=== PATIENT | female | born 1985 | race Hispanic/Latino ===

== ENCOUNTER 2017-02-19 06:09 | Inpatient (IN) | payer BC ==
[2017-02-14 11:05] VITALS: BMI 38.6
[2017-02-19] MEDS ORDERED: Bacitracin Ointment 30 GM TUBE ONE (06:53)
[2017-02-19] MEDS ORDERED: Absorbable Gelatin Sponge Size 12-7 ONE (06:53)
[2017-02-19] MEDS ORDERED: Thrombin Topical 5,000 IU Spray Kit ONE (06:54)
[2017-02-19] MEDS ORDERED: Lactated Ringer's 1,000 ML IV ONE ×2 (07:08→07:50)
[2017-02-19] MEDS ORDERED: Propofol 10 mg/ml Inj (20 ML) ONE (07:08)
[2017-02-19] MEDS ORDERED: ePHEDrine 50 mg/ml Inj ONE (07:08)
[2017-02-19] MEDS ORDERED: Midazolam 2 MG/2 ML VIAL ONE (07:08)
[2017-02-19] MEDS ORDERED: Succinylcholine 200 mg/10 ml Inj IV ONE (07:09)
[2017-02-19] MEDS ORDERED: Rocuronium 10 mg/ml (5 ml) ONE ×3 (07:09→08:40)
[2017-02-19] MEDS ORDERED: Phenylephrine 10 mg/ml Inj ONE (07:09)
--- NOTE | 2017-02-19 07:33 | CP.PCM.CON ---
History of Present Illness - History of Present Illness History of Present Illness: 32 yo right hand dominant legally blind female since seen by Dr. Paez in his office,c/o sudden onset of neckpain radiating to LUE and LLE x >6 mos and worsening with weakness and paresthesias,difficulty ambulating at times,uses no assistive devices,seen in ER several times for pain with neg XR's,CT head showing an incidental calcified meningioma (no surgical intervention needed currently),referred to neurologist,MRI completed showing multi level severe cervical spondylosis,no relief with conservative management,referred to neurosurgery for further eval,ambulates independently,denies trauma,fall,bowel or bladder incontinance. Review of Systems - Review of Systems Systems not reviewed;Unavailable: Acuity of Condition - Constitutional Additional comments: Denies RUST,n/v,TIA,CVA, facial paresthesias,change in speech or change in vision from baseline - EENT Additional comments: Legally blind - Musculoskeletal Musculoskeletal: Muscle Weakness, Neck Pain, Radiating Pain into Limb, Tingling - Neurological Neurological: As Per HPI, Radicular Pain - Psychiatric Additional comments: Hx anxiety and depression,no suicidal ideation - Hematologic/Lymphatic Additional comments: uses Naproxen,last used 1 week ago Past Patient History - Infectious Disease Hx of Infectious Diseases: None - Tetanus Immunizations Tetanus Immunization: Unknown - Past Medical History & Family History Past Medical History?: Yes - Past Social History Smoking Status: Never Smoked Chewing Tobacco Use: No Cigar Use: No Occupation: unemployed Alcohol: None Drugs: Denies Home Situation {Lives}: With Family Domestic Violence: Negative - CARDIAC Hx Cardiac Disorders: No - PULMONARY Hx Respiratory Disorders: No - NEUROLOGICAL Hx Neurological Disorder: No Other/Comment: DX OF BRAIN TUMOR AUG 2016 - HEENT Hx HEENT Problems: Yes Hx Blind: Yes (legally) - RENAL Hx Chronic Kidney Disease: No - ENDOCRINE/METABOLIC Hx Endocrine Disorders: No - HEMATOLOGICAL/ONCOLOGICAL Hx Blood Disorders: No - INTEGUMENTARY Hx Dermatological Problems: No - MUSCULOSKELETAL/RHEUMATOLOGICAL Hx Musculoskeletal Disorders: Yes Hx Back Pain: Yes (AND NECK PAIN) - GASTROINTESTINAL Hx Gastrointestinal Disorders: No - GENITOURINARY/GYNECOLOGICAL Hx Genitourinary Disorders: No Other/Comment: ovarian cyst - PSYCHIATRIC Hx Psychophysiologic Disorder: Yes Hx Anxiety: Yes Hx Depression: Yes Hx Substance Use: No - SURGICAL HISTORY Hx Surgeries: Yes Other/Comment: GASTRIC LAP BAND PLACEMENT AND REMOVAL 2014 .REMOVAL FIBROID AUG 2016 - ANESTHESIA Hx Anesthesia: Yes Hx Anesthesia Reactions: No Hx Malignant Hyperthermia: No Has any member of the family had a problem w/ anesthesia?: No Meds Allergies/Adverse Reactions: Allergies Allergy/AdvReac Type Severity Reaction Status Date / Time Penicillins Allergy ANAPHYLAXIS Verified 07/21/16 14:05 Physical Exam - Constitutional Appears: Well, Non-toxic, No Acute Distress - Head Exam Head Exam: ATRAUMATIC, NORMAL INSPECTION, NORMOCEPHALIC - Eye Exam Eye Exam: EOMI Pupil Exam: PERRL Additional comments: + horizontal nystagmus,able to see objects relatively clear 12 inches from face, decreased acuity and visual yo - ENT Exam ENT Exam: Mucous Membranes Moist - Neck Exam Neck exam: Positive for: Normal Inspection, Tenderness - Respiratory Exam Respiratory Exam: Clear to Auscultation Bilateral - Cardiovascular Exam Cardiovascular Exam: REGULAR RHYTHM, +S1, +S2 - GI/Abdominal Exam GI & Abdominal Exam: Normal Bowel Sounds, Soft Additional comments: obese,no pelvic paresthesias - Rectal Exam Rectal Exam: Deferred - Extremities Exam Extremities exam: Positive for: normal inspection, pedal pulses present - Back Exam Back exam: NORMAL INSPECTION, vertebral tenderness Additional comments: hx LBP with LLE radiculapathy - Neurological Exam Neurological exam: Alert, Oriented x3 Additional comments: gait steady,WATTERS x 4 antigravity with good strength except LUE weakness 4-4+/5, decreased sensation LUE,hyperreflexic in LUE and BLE - Psychiatric Exam Psychiatric exam: Normal Affect, Normal Mood - Skin Skin Exam: Dry, Intact, Pallor Additional comments: pt albino Results - Vital Signs Recent Vital Signs: Last Vital Signs Temp Pulse 120 H 02/19/17 06:41 Resp BP Pulse Ox - Labs Result Diagrams: 02/20/17 08:31 Labs: Laboratory Results - last 24 hr 02/19/17 06:30 BBK History Checked No verified bt Assessment & Plan - Assessment and Plan (Free Text) Assessment: 32 yo female with multi level cervical spondylosis C3-7 and myelopathy who has failed conservative management and symptoms worsening. Plan: Here today for proposed posterior cervical laminectomy C3-7 with lateral mass screw fixation of multiple levels with Dr. Paez,risks and benefits of surgery discussed with pt,expressed understanding and wishes to proceed.
[2017-02-19] MEDS ORDERED: Morphine 1 mg/ml preservative-free Inj(Duramorph) ONE (08:01)
[2017-02-19] MEDS ORDERED: Dexamethasone 4 mg/1 ml ONE (08:29)
[2017-02-19] MEDS ORDERED: HEMOSTATIC MATRIX 10 ML DIS.NEEDLE TOP ONE ×2 (08:31)
[2017-02-19] MEDS ORDERED: Thrombin Topical 5,000 IU Spray Kit TOP ONE (08:34)
[2017-02-19] MEDS ORDERED: Absorbable Gelatin Sponge Size 12-7 TP ONE (08:35)
[2017-02-19] MEDS ORDERED: Neostigmine Methylsulfate 3mg/3ml Syringe IV ONE (08:58)
[2017-02-19] MEDS ORDERED: Neostigmine Methylsulfate 2 MG/2 ML ML IV ONE (08:58)
[2017-02-19] MEDS ORDERED: Bupivacaine HCl 0.25% PF (30 ml) Inj ONE (09:19)
[2017-02-19] MEDS ORDERED: Bupivacaine HCl 0.25% PF (30 ml) Inj IJ ONE (09:45)
[2017-02-19] MEDS ORDERED: Naloxone 0.4 mg/ml Inj (Adult) IVP PRN (10:05)
[2017-02-19] MEDS: HYDROmorphone 0.5 mg/0.5 ml ISec IVP PRN ×4 (10:30→11:20)
--- NOTE | 2017-02-19 14:02 | RAD ---
PROCEDURE: Fluoroscopy up to 1 hr. HISTORY: PCDF COMPARISON: None TECHNIQUE: Standard FINDINGS: Submitted images from the current procedure: 1.0. Total fluoroscopic time (continuous mode) utilized during the procedure: 6.6 seconds. IMPRESSION: Less than 1 hr fluoroscopic time utilized during performance of the procedure.
[2017-02-19] MEDS: Sodium Chloride 0.9% 1,000 ML IV SCH ×2 (14:15→21:44)
--- NOTE | 2017-02-19 15:34 | CP.PCM.HP ---
History of Present Illness - History of Present Illness History of Present Illness: pt is a 32y/o right hand dominant legally blind female since seen by Dr. Paez in his office,c/o sudden onset of neck pain radiating to LUE and LLE x 6 mos and worsening with weakness and parethesis,seen in ER several times for pain with neg XR's,CT head showing an incidental calcified meningioma,referred to neurologist,MRI completed showing cervical spondylosis,no relief with conservative management,referred to neurosurgery for further eval,ambulates independently,denies trauma,fall,bowel or bladder incontinence. pt seen and examined s/p posterior cervical laminectomy with lateral mass screw fixation, reports pain at surgical area but another than that no dizziness, headaches or visual changes Present on Admission - Present on Admission Any Indicators Present on Admission: No Review of Systems - Review of Systems All systems: reviewed and no additional remarkable complaints except Review of Systems: per HPI Past Patient History - Past Medical History & Family History Past Medical History?: Yes - Past Social History Smoking Status: Never Smoked - CARDIAC Hx Cardiac Disorders: No - PULMONARY Hx Respiratory Disorders: No - NEUROLOGICAL Hx Neurological Disorder: No Other/Comment: DX OF BRAIN TUMOR AUG 2016 - HEENT Hx HEENT Problems: Yes Hx Blind: Yes (legally) - RENAL Hx Chronic Kidney Disease: No - ENDOCRINE/METABOLIC Hx Endocrine Disorders: No - HEMATOLOGICAL/ONCOLOGICAL Hx Blood Disorders: No - INTEGUMENTARY Hx Dermatological Problems: No - MUSCULOSKELETAL/RHEUMATOLOGICAL Hx Musculoskeletal Disorders: Yes Hx Back Pain: Yes (AND NECK PAIN) - GASTROINTESTINAL Hx Gastrointestinal Disorders: No - GENITOURINARY/GYNECOLOGICAL Hx Genitourinary Disorders: No Other/Comment: ovarian cyst - PSYCHIATRIC Hx Psychophysiologic Disorder: Yes Hx Anxiety: Yes Hx Depression: Yes Hx Substance Use: No - SURGICAL HISTORY Hx Surgeries: Yes Other/Comment: GASTRIC LAP BAND PLACEMENT AND REMOVAL 2014 .REMOVAL FIBROID AUG 2016 - ANESTHESIA Hx Anesthesia: Yes Hx Anesthesia Reactions: No Hx Malignant Hyperthermia: No Has any member of the family had a problem w/ anesthesia?: No Meds Allergies/Adverse Reactions: Allergies Allergy/AdvReac Type Severity Reaction Status Date / Time Penicillins Allergy ANAPHYLAXIS Verified 07/21/16 14:05 Physical Exam - Constitutional Appears: Non-toxic, No Acute Distress - Head Exam Head Exam: NORMOCEPHALIC - Eye Exam Eye Exam: Normal appearance, PERRL Pupil Exam: NORMAL ACCOMODATION - ENT Exam ENT Exam: Mucous Membranes Moist - Neck Exam Additional comments: surgical site neatly dressed, drain in place. no leakage noted - Respiratory Exam Respiratory Exam: Clear to Auscultation Bilateral, NORMAL BREATHING PATTERN. absent: Rhonchi, Wheezes - Cardiovascular Exam Cardiovascular Exam: REGULAR RHYTHM, +S1, +S2 - GI/Abdominal Exam GI & Abdominal Exam: Normal Bowel Sounds, Soft. absent: Tenderness - Extremities Exam Extremities exam: Negative for: calf tenderness, pedal edema - Neurological Exam Neurological exam: Alert, Oriented x3 Results - Vital Signs Recent Vital Signs: Last Vital Signs Temp 99.2 F 02/19/17 15:00 Pulse 106 H 02/19/17 15:00 Resp 20 02/19/17 15:00 BP 130/84 02/19/17 15:00 Pulse Ox 97 02/19/17 15:00 - Labs Labs: Laboratory Results - last 24 hr 02/19/17 02/19/17 06:30 07:21 Blood Type A POSITIVE Blood Type Confirm A POSITIVE Antibody Screen Negative BBK History Checked No verified bt Assessment & Plan - Assessment and Plan (Free Text) Assessment: 32 y/o female legally blind admitted s/o posterior cervical laminectomy with lateral mass screw fixation POD #0 Plan: posterior cervical laminectomy with lateral mass screw fixation on PINION AND WHEEL TRUER pump for pain management pain management consulted as pt was on multiple opiates at home clindamycin continued for infection prevention lovenox in the Am Pt eval treat diet- liquid diet , in the morning will access if to progress to regular diet
[2017-02-19] MEDS: Dexamethasone 6 MG in Sodium Chloride 0.9% 50 ML IVPB SCH ×2 (16:46→21:38)
[2017-02-19] MEDS ORDERED: ceFAZolin 1 GM in Sodium Chloride 0.9% 100 ML IVPB SCH (21:00)
--- NOTE | 2017-02-19 21:21 | OP ---
PROCEDURE DATE: 02/19/2017 PREOPERATIVE DIAGNOSES: Cervical spondylosis with myelopathy. POSTOPERATIVE DIAGNOSES: Cervical spondylosis with myelopathy. PROCEDURE: C3-4-5-6-7 laminectomy, C3-C7 lateral mass plating using a [place] system of K2, C3-C7 po sterolateral fusion. Fluoroscopy has been used. Microscope has been used. SURGEON: Dr. Paez. COMPOSITION WEATHERBOARD APPLIER: Gwendolyn Zuluaga. Gwendolyn Zuluaga is a physician assistant merchandise manager who stayed through out the case and helped me operate from the beginning to the end. The screwhead stoner and polisher has been used for the procedure. Fluoroscopy has been used for the procedure. DESCRIPTION OF PROCEDURE: The patient was brought to the operating room, administered general endotr acheal anesthesia. Head was placed in a 3-pin Ambriz screwhead stoner and polisher. The patient was placed in the p kaylen position on a Sukdhev frame. heating systems installer has been clamped to the bed. Care was taken to protect all the pressure points. Back of the cervical area thoroughly prepped and draped in standard steril e manner after marking for skin incision for cervical laminectomy. After prepping and draping the ar ea, skin has been incised. Bleeding skin have been controlled with bipolar community aide. After using a Bovie community aide, paraspinal muscles have been detached from attachment of spinous process and lami na of C3-C7. Deep retractors have been applied. Identification of levels has been done with help of fluoroscopy. At this point, by using traditional landmarks, point of entry noted for the lateral ma ss plates from C3-C7. Initially ____ has been used. Polyaxial titanium screws have been placed in t he lateral ____ under fluoroscopy guided control of the K2 system. Titanium rods have been placed. Cap nuts have been used in order to secure them. All this has been done with fluoroscopy. At this p oint, under microscope magnification and illumination, the spinous process of C3-C7 have been removed . By using a high speed drill, the lamina and medial part of the facets have been drilled to actual thickness. By using a fine Kerrison punch thinned out ____ lamina, medial part of the facets, ligam entum flavum has been removed decompressing this area. Lateral aspect of facet joints have been deco rticated, demineralized bone placed in the area achieving a posterolateral fusion. After that, the J kson drain placed in the wound ____ incision. Muscles and fascia closed with 1-0 Vicryl, subcutan eous with 3-0 Vicryl, skin has been closed with intradermal 3-0 Vicryl stitches. The patient tolerat ed the procedure. After procedure, mobilized to the recovery room in stable condition. Paulo Paez MD cc: 252 TT: 02/19/2017 21:20:54 rn
[2017-02-19] MEDS: oxyCODONE 40 mg ER Tab (oxyCONTIN) PO SCH (21:39)
[2017-02-19] MEDS: Clindamycin 600 MG in Sodium Chloride 0.9% 100 ML IVPB SCH (22:01)
[2017-02-20] MEDS: Dexamethasone 6 MG in Sodium Chloride 0.9% 50 ML IVPB SCH ×4 (04:30→21:20)
[2017-02-20] MEDS: Sodium Chloride 0.9% 1,000 ML IV SCH ×2 (05:55→17:20)
[2017-02-20 08:44] LABS: BASO % 0.2 % (0.0-2.0); HEMATOCRIT 28.2 % (34.0-47.0); LYMPH # 1.1 K/uL (1.0-4.3); LYMPH % 10.4 % (20.0-40.0); MEAN CELL VOLUME 69.2 fl (81.0-99.0); MEAN CORPUSCULAR HEMOGLOBIN 21.3 pg (27.0-31.0); MEAN CORPUSCULAR HGB CONC 30.8 g/dL (33.0-37.0); MEAN PLATELET VOLUME 8.1 fl (7.2-11.7); MONO # 1.1 K/uL (0.0-0.8); MONO % 9.9 % (0.0-10.0); NEUT # 8.6 K/uL (1.8-7.0); NEUT % 79.5 % (50.0-75.0); NRBC % 0.1 % (0.0-0.0); WHITE BLOOD COUNT 10.8 K/uL (4.8-10.8)
[2017-02-20] MEDS ORDERED: Enoxaparin 40 mg Syringe SC SCH (09:00)
[2017-02-20] MEDS: oxyCODONE 40 mg ER Tab (oxyCONTIN) PO SCH ×2 (09:38→21:17)
[2017-02-20] MEDS ORDERED: Lactulose 10 gm/15 ml Syrup PO PRN (10:41)
[2017-02-20 11:48] LABS: BLOOD UREA NITROGEN 12 mg/dl (7-17); CALCIUM 8.8 mg/dL (8.4-10.2); CARBON DIOXIDE 22 mmol/L (22-30); CHLORIDE 105 mmol/L (98-107); GFR AFRICAN-AMERICAN > 60; GLUCOSE,RANDOM 121 mg/dL (65-105); POTASSIUM 3.9 MMOL/L (3.6-5.0); SODIUM 134 mmol/l (132-148)
[2017-02-20] MEDS: Clindamycin 600 MG in Sodium Chloride 0.9% 100 ML IVPB SCH ×2 (12:09→21:18)
[2017-02-20] MEDS: Oxycodone/Acetaminophen 5/325 mg Tab PO PRN (17:18)
[2017-02-21 07:29] LABS: HEMATOCRIT 29.8 % (34.0-47.0); MEAN CELL VOLUME 70.1 fl (81.0-99.0); MEAN CORPUSCULAR HEMOGLOBIN 21.2 pg (27.0-31.0); MEAN CORPUSCULAR HGB CONC 30.3 g/dL (33.0-37.0); RED CELL DISTRIBUTION WIDTH 19.3 % (11.5-14.5); WHITE BLOOD COUNT 10.9 K/uL (4.8-10.8)
[2017-02-21 07:30] LABS: BLOOD UREA NITROGEN 11 mg/dl (7-17); CALCIUM 8.7 mg/dL (8.4-10.2); CARBON DIOXIDE 24 mmol/L (22-30); CHLORIDE 106 mmol/L (98-107); GFR AFRICAN-AMERICAN > 60; GLUCOSE,RANDOM 127 mg/dL (65-105); POTASSIUM 4.3 MMOL/L (3.6-5.0); SODIUM 142 mmol/l (132-148)
[2017-02-21 08:13] VITALS: BP 113/78; RESP 18; TEMP 97.8
[2017-02-21] MEDS ORDERED: Dexamethasone 4 MG in Sodium Chloride 0.9% 50 ML IVPB SCH (09:00)
[2017-02-21] MEDS: Oxycodone/Acetaminophen 5/325 mg Tab PO PRN (09:23)
[2017-02-21] MEDS: oxyCODONE 40 mg ER Tab (oxyCONTIN) PO SCH (09:24)
[2017-02-21] MEDS: Clindamycin 600 MG in Sodium Chloride 0.9% 100 ML IVPB SCH (09:25)
--- NOTE | 2017-02-21 11:43 | CP.PCM.DIS ---
Provider - Provider Date of Admission: 02/19/17 10:35 Attending physician: Jack Bynum MD Primary care physician: César Mahoney MD Time Spent in preparation of Discharge (in minutes): 30 Diagnosis - Discharge Diagnosis (1) Cervical spondylolysis Status: Acute Hospital Course - Lab Results Lab Results: Most Recent Lab Values WBC 10.9 K/uL (4.8-10.8) H 02/21/17 05:50 RBC 4.26 Mil/uL (3.80-5.20) 02/21/17 05:50 Hgb 9.0 g/dL (12.0-16.0) L 02/21/17 05:50 Hct 29.8 % (34.0-47.0) L 02/21/17 05:50 MCV 70.1 fl (81.0-99.0) L 02/21/17 05:50 MCH 21.2 pg (27.0-31.0) L 02/21/17 05:50 MCHC 30.3 g/dL (33.0-37.0) L 02/21/17 05:50 RDW 19.3 % (11.5-14.5) H 02/21/17 05:50 Plt Count 245 K/uL (130-400) 02/21/17 05:50 MPV 8.1 fl (7.2-11.7) 02/20/17 08:31 Neut % (Auto) 79.5 % (50.0-75.0) H 02/20/17 08:31 Lymph % (Auto) 10.4 % (20.0-40.0) L 02/20/17 08:31 [place] % (Auto) 9.9 % (0.0-10.0) 02/20/17 08:31 Eos % (Auto) 0.0 % (0.0-4.0) 02/20/17 08:31 Baso % (Auto) 0.2 % (0.0-2.0) 02/20/17 08:31 Neut # 8.6 K/uL (1.8-7.0) H 02/20/17 08:31 Lymph # 1.1 K/uL (1.0-4.3) 02/20/17 08:31 [place] # 1.1 K/uL (0.0-0.8) H 02/20/17 08:31 Eos # 0.0 K/uL (0.0-0.7) 02/20/17 08:31 Baso # 0.0 K/uL (0.0-0.2) 02/20/17 08:31 Sodium 142 mmol/l (132-148) 02/21/17 05:50 Potassium 4.3 MMOL/L (3.6-5.0) 02/21/17 05:50 Chloride 106 mmol/L (98-107) 02/21/17 05:50 Carbon Dioxide 24 mmol/L (22-30) 02/21/17 05:50 Anion Gap 16 (10-20) 02/21/17 05:50 BUN 11 mg/dl (7-17) 02/21/17 05:50 Creatinine 0.7 mg/dL (0.7-1.2) 02/21/17 05:50 Est GFR ( Amer) > 60 02/21/17 05:50 Est GFR (Non-Af Amer) > 60 02/21/17 05:50 POC Glucose (mg/dL) 134 mg/dL (65-110) H 02/20/17 05:23 Random Glucose 127 mg/dL (65-105) H 02/21/17 05:50 Calcium 8.7 mg/dL (8.4-10.2) 02/21/17 05:50 Iron 13 ug/dL (37-170) L 02/21/17 09:25 Ferritin 5.7 ng/mL 02/21/17 09:25 Vitamin B12 349 pg/mL (239-931) 02/21/17 09:25 Blood Type A POSITIVE 02/19/17 06:30 Blood Type Confirm A POSITIVE 02/19/17 07:21 Antibody Screen Negative 02/19/17 06:30 BBK History Checked No verified bt 02/19/17 06:30 - Hospital Course Hospital Course: pt was admitted s/p cervical laminectomy with fusion, pain managed appropriately had physical therapy and pt feels ready to go home. being discharge to follow up with surgeon in 2weeks. Pt remained medically stable through out stay Discharge Exam - Head Exam Head Exam: ATRAUMATIC, NORMAL INSPECTION, NORMOCEPHALIC - Eye Exam Eye Exam: Normal appearance Pupil Exam: NORMAL ACCOMODATION - ENT Exam ENT Exam: Mucous Membranes Moist - Neck Exam Additional comments: cervical collar around neck, drain removed, no signs of infection, dale still in place - Respiratory Exam Respiratory Exam: NORMAL BREATHING PATTERN - Cardiovascular Exam Cardiovascular Exam: REGULAR RHYTHM, +S1, +S2 - GI/Abdominal Exam GI & Abdominal Exam: Normal Bowel Sounds, Soft - Extremities Exam Extremities exam: normal inspection - Neurological Exam Neurological exam: Alert, CN II-XII Intact, Oriented x3 Discharge Plan - Discharge Medications Prescriptions: oxyCODONE/Acetaminophen [Percocet 5/325 mg Tab] 1 tab PO Q4 PRN #30 tab PRN Reason: Pain, Moderate (4-7) - Follow Up Plan Condition: GOOD Disposition: HOME/ ROUTINE Instructions: Laminectomy (GEN) Additional Instructions: Please follow up with Dr. arias at the specialty clinic in 2 weeks to have dale removed call this number [phone]/ [phone] to make the appointment Referrals: César Mahoney MD [Primary Care Provider] -
[2017-02-21 11:56] VITALS: PULSE 87; O2SAT 99
[2017-02-22 22:49] LABS: FOLATE 11.4 ng/mL
== END 2017-02-21 14:00 | disposition home or self-care (01) | DRG 473 ==
LOC: H.OPSURG 06:09 → H.TEL 10:35
PROVIDERS: ADMIT Family Medicine; ATTEND Family Medicine
PROC: 0RG20Z1 (ICD-10-PCS; principal; 2017-02-19 07:45)
DX: M47.12 Other spondylosis with myelopathy, cervical region (principal); H54.8 Legal blindness, as defined in USA; R20.9 Unspecified disturbances of skin sensation; Z88.0 Allergy status to penicillin

== ENCOUNTER 2018-06-14 07:03 | Inpatient (IN) | payer BC ==
[2018-06-14 07:03] VITALS: BMI 44.2
[2018-06-14] MEDS ORDERED: Sodium Chloride 0.9% 1,000 ML IV STA ×2 (07:22→09:40)
[2018-06-14 08:30] LABS: SQUAMOUS EPITHIAL 2 /hpf (0-5); URINE AMORPHOUS SEDIMENT OCC /ul (<OCC); URINE BACTERIA OCC (<OCC); URINE BILIRUBIN NEGATIVE (NEGATIVE); URINE BLOOD SMALL (NEGATIVE); URINE CLARITY TURBID (Clear); URINE COLOR AMBER (YELLOW); URINE GLUCOSE (UA) NEG (Normal); URINE LEUKOCYTE ESTERASE SMALL Leu/uL (Negative); URINE PROTEIN 100 mg/dL (NEGATIVE); URINE UROBILINOGEN 0.2-1.0 mg/dL (0.2-1.0)
--- NOTE | 2018-06-14 08:47 | CT ---
Date of service: 06/14/2018 PROCEDURE: CT Cervical Spine without contrast HISTORY: headache COMPARISON: None available. TECHNIQUE: Axial computed tomography images were obtained of the cervical spine without the use of intravenous contrast. Coronal and sagittal reformatted images were created and reviewed. Radiation dose: Total exam DLP = 652.92 mGy-cm. This CT exam was performed using one or more of the following dose reduction techniques: Automated exposure control, adjustment of the mA and/or kV according to patient size, and/or use of iterative reconstruction technique. . FINDINGS: VERTEBRAE: Multilevel bilateral laminectomy defect seen extending from the C3 through the C7 segments. . Multilevel posterior fixation accomplished by placement of long segment bilateral Ibarra rods which are attached to the posterior elements of C3 through the C7 segments. Hardware appears intact. No evidence of loosening or infection. . There is slight reversal of the normal cervical lordosis possibly due to patient positioning in the gantry however a posterior fixation hardware may contribute DISCS/SPINAL CANAL/NEURAL FORAMINA: The canal over operative levels appears widely patent the difficult to assess due to significant crossing streak and beam hardening artifact arising from the posterior fixation wire. Slight right-sided foraminal narrowing at the C4-C5 level and on the left at the C5-C6 level however the remaining exit foramina appear adequate so far as can be seen despite overgrowth of the facet joints at several levels. PARASPINAL SOFT TISSUES: Unremarkable. OTHER FINDINGS: None. IMPRESSION: Multilevel bilateral laminectomy and posterior fixation as described. Hardware is intact without evidence of failure. Overall central canal appears adequate though difficult to assess due to significant streak and beam hardening artifact. Exit foramina appear slightly narrowed at several levels as detailed above.
--- NOTE | 2018-06-14 08:59 | CT ---
Date of service: 06/14/2018 PROCEDURE: CT HEAD WITHOUT CONTRAST. HISTORY: L weakness hx cerv laminectomy COMPARISON: None available. TECHNIQUE: Axial computed tomography images were obtained through the head/brain without intravenous contrast. Radiation dose: Total exam DLP = 761.62 CT move mGy-cm. This CT exam was performed using one or more of the following dose reduction techniques: Automated exposure control, adjustment of the mA and/or kV according to patient size, and/or use of iterative reconstruction technique. FINDINGS: HEMORRHAGE: No intracranial hemorrhage. BRAIN: Note is made of a small approximately 6.5 x 5.9 mm rounded soft tissue density with speckled internal calcifications in the right aspect of the posterior fossa abutting the right lateral margin of the patella and inferomedial aspect of the cerebellum of uncertain etiology. Follow-up pre and post-contrast MRI of the brain is recommended to exclude the possibility of an extra-axial mass such is a small meningioma. Possibility of a posterior inferior cerebellar aneurysm not excluded. . VENTRICLES: Unremarkable. No hydrocephalus. CALVARIUM: Unremarkable. PARANASAL SINUSES: Unremarkable as visualized. No significant inflammatory changes. MASTOID AIR CELLS: Unremarkable as visualized. No inflammatory changes. OTHER FINDINGS: Small elliptical shaped nodular densities seen in the right posterior superior parietal scalp and another in the left frontal scalp IMPRESSION: No acute intracranial hemorrhage. No evidence of large acute infarct. . Posterior inferior cerebellar artery aneurysm Note is made of a small approximately 6.5 x 5.9 mm rounded soft tissue density with speckled internal calcifications in the right aspect of the posterior fossa abutting the right lateral margin of the patella and inferomedial aspect of the cerebellum of uncertain etiology. Follow-up pre and post-contrast MRI of the brain is recommended to exclude the possibility of an extra-axial mass such is a small meningioma. Possibility of a posterior inferior cerebellar aneurysm not excluded. .
[2018-06-14 09:02] LABS: BASO % 0.3 % (0.0-2.0); LYMPH # 1.6 K/uL (1.0-4.3); LYMPH % 11.5 % (20.0-40.0); MEAN CELL VOLUME 74.1 fl (81.0-99.0); MEAN CORPUSCULAR HEMOGLOBIN 24.5 pg (27.0-31.0); MEAN PLATELET VOLUME 7.6 fl (7.2-11.7); MONO # 0.4 K/uL (0.0-0.8); MONO % 2.7 % (0.0-10.0); NEUT # 11.6 K/uL (1.8-7.0); NEUT % 85.5 % (50.0-75.0); NRBC % 0.2 % (0.0-0.0); RBC 5.73 Mil/uL (3.80-5.20); WHITE BLOOD COUNT 13.5 K/uL (4.8-10.8)
[2018-06-14 09:10] LABS: ALB/GLOB RATIO 1.2 (1.0-2.1); ALT/SGPT 34 U/L (9-52); AST/SGOT 26 U/L (14-36); BLOOD UREA NITROGEN 13 mg/dl (7-17); CALCIUM 10.5 mg/dL (8.4-10.2); GFR AFRICAN-AMERICAN > 60; GFR NON-AFRICAN AMERICAN > 60
[2018-06-14] MEDS ORDERED: Ciprofloxacin 400mg/200ml D5W 400 MG/200 ML BAG IVPB STA (10:06)
--- NOTE | 2018-06-14 10:36 | ED PDOC ---
HPI:STROKE - Time Time: 07:30 - Historian Historian: Patient - Chief Complaint Chief Complaint: Weakness - Onset Date: 06/11/18 Onset: Days (3 days ago, approximate) - Timing Timing: Currently Symptomatic - Location Locate left: Lower extremity - Severity of pain Maximum severity:: Severe Severity Current: Severe - Quality of Pain Quality of Pain:: Sharp - Exacerbated by Exacerbated by:: Postition Change - Relieved by Relieved by:: Position Change - TPA Positive for Contraindication: Yes Reason tPA is not being Administered: ongoing 3 days - Notes: Notes:: 33yo female c/o left sided weakness associated with neck pain, persistent nausea vomiting and chills now for 3 days. Also states ran out of opioid pain meds early this month because of worsening neck pain. Saw Dr Paez her spine surgeon in late may told all was ok, had cervical laminectomy spring 2016. Denies change in vision or speech, does feel L facial tingling but denies facial droop. Does admit to some difficulty swallowing. Past Medical History Vital Signs: Last Vital Signs Temp 100 F H 06/14/18 07:11 Pulse 98 H 06/14/18 07:11 Resp 20 06/14/18 07:24 BP 144/87 06/14/18 07:11 Pulse Ox 99 06/14/18 07:11 - Medical History PMH: Anxiety, Depression Denies: Chronic Kidney Disease - Surgical History Surgical History: Back Surgery (vertebre) - Home Medications Home Medications: Ambulatory Orders Medication Instructions Recorded Fluoxetine HCl [Prozac] 40 mg PO DAILY 06/14/18 Metoclopramide [Reglan] 10 mg PO QID PRN 06/14/18 Oxycodone HCl [Oxycontin] 60 mg PO TID 06/14/18 Oxycodone HCl/Acetaminophen 1 tab PO BID 06/14/18 [Percocet 7.5-325 mg Tablet] Tolterodine [Detrol LA] 4 mg PO DAILY PRN 06/14/18 Zolpidem [Ambien] 10 mg PO HS 06/14/18 buPROPion XL [Wellbutrin] 150 mg PO DAILY 06/14/18 oxyCODONE [oxycodone Hydrochloride] 20 mg PO TID 06/14/18 - Allergies Allergies/Adverse Reactions: Allergies Allergy/AdvReac Type Severity Reaction Status Date / Time Penicillins Allergy ANAPHYLAXIS Verified 06/14/18 07:23 - Laboratory Results Result Diagrams: 06/14/18 08:50 06/14/18 08:50 - ECG O2 Sat by Pulse Oximetry: 99 Medical Decision Making Medical Decision Making: not code stroke candidate given symptoms ongoing >[address] brain, CSpine ordered Low grade temp, cultures ordered, labs. UA reveals small evidence UTI D/w Dr Paez neurosurg requests CRP/ESR and admit to Dr Bynum d/w Dr Bynum, neuro she sees Dr Fuller but case d/w him and he's on vacation this week, environmental health technologist neuro to see ASA 81mg ordered given c/o subjective L sided weakness Disposition - Disposition Forms: [employer] ([place])
[2018-06-14] MEDS ORDERED: Ciprofloxacin 400mg/200ml D5W 400 MG/200 ML BAG IVPB ONE (10:43)
[2018-06-14 10:46] LABS: HDL CHOLESTEROL 79 MG/DL (30-70)
[2018-06-14 10:56] LABS: LDL CHOLESTEROL 146 mg/dL (0-129)
[2018-06-14] MEDS ORDERED: Oxycodone/Acetaminophen 5/325 mg Tab PO PRN (12:09)
[2018-06-14] MEDS: Oxycodone/Acetaminophen 5/325 mg Tab PO PRN ×3 (12:47→21:11)
[2018-06-14] MEDS: Lidocaine 5% Patch TD SCH (12:48)
--- NOTE | 2018-06-14 17:51 | CP.PCM.HP ---
History of Present Illness - History of Present Illness History of Present Illness: this is a 33 y/o female admnitted for worsening of posterior( cervical) neck pain and left trapezius pain for 3 days associated with fever and chills and at times episodes of vomiting. 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 She had the same episode a month ago and had consulted Dr Arias who performed the cervical laminectomy last year. her symptoms resolved spontaneously. She was able to regain strength of left upper extremity but persisted to have pain. She is currently on high doses of pain medications and Psychotropic medications. Present on Admission - Present on Admission Any Indicators Present on Admission: No History of DVT/PE: No History of Uncontrolled Diabetes: No Urinary Catheter: No Decubitus Ulcer Present: No Review of Systems - Musculoskeletal Musculoskeletal: Back Pain, Limited Range of Motion, Muscle Weakness, Neck Pain - Psychiatric Psychiatric: Abnormal Sleep Pattern, Depression Past Patient History - Infectious Disease Hx of Infectious Diseases: None - Tetanus Immunizations Tetanus Immunization: Unknown - Past Medical History & Family History Past Medical History?: Yes - Past Social History Smoking Status: Never Smoked - CARDIAC Hx Cardiac Disorders: No - PULMONARY Hx Respiratory Disorders: No - NEUROLOGICAL Hx Neurological Disorder: No Other/Comment: DX OF BRAIN TUMOR AUG 2016 - HEENT Hx HEENT Problems: Yes Hx Blind: Yes (legally) - RENAL Hx Chronic Kidney Disease: No - ENDOCRINE/METABOLIC Hx Endocrine Disorders: No - HEMATOLOGICAL/ONCOLOGICAL Hx Blood Disorders: No - INTEGUMENTARY Hx Dermatological Problems: No - MUSCULOSKELETAL/RHEUMATOLOGICAL Hx Falls: No - GASTROINTESTINAL Hx Gastrointestinal Disorders: No - GENITOURINARY/GYNECOLOGICAL Hx Genitourinary Disorders: No Other/Comment: ovarian cyst - PSYCHIATRIC Hx Anxiety: Yes Hx Depression: Yes Hx Substance Use: No - SURGICAL HISTORY Other/Comment: GASTRIC LAP BAND PLACEMENT AND REMOVAL 2014 .REMOVAL FIBROID AUG 2016 - ANESTHESIA Hx Anesthesia: Yes Hx Anesthesia Reactions: No Hx Malignant Hyperthermia: No Meds Allergies/Adverse Reactions: Allergies Allergy/AdvReac Type Severity Reaction Status Date / Time Penicillins Allergy ANAPHYLAXIS Verified 06/14/18 07:23 Physical Exam - Eye Exam Eye Exam: Normal appearance - ENT Exam ENT Exam: Mucous Membranes Moist - Neck Exam Neck exam: Positive for: Tenderness Additional comments: tenderness on the left trapezius area - Respiratory Exam Respiratory Exam: Rhonchi - Cardiovascular Exam Cardiovascular Exam: REGULAR RHYTHM - GI/Abdominal Exam GI & Abdominal Exam: Normal Bowel Sounds - Extremities Exam Additional comments: 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 and decreased motor strength left hand/ upper ext - Neurological Exam Neurological exam: CN II-XII Intact, Oriented x3 Additional comments: decreased motor strength left upper ext to 4/5 the rest of other ext are all 5/5 - Psychiatric Exam Psychiatric exam: Depressed - Skin Skin Exam: Normal Color Results - Vital Signs Recent Vital Signs: Last Vital Signs Temp 98.1 F 06/14/18 16:09 Pulse 82 06/14/18 16:09 Resp 16 06/14/18 16:09 BP 120/80 06/14/18 16:09 Pulse Ox 98 06/14/18 16:09 - Labs Result Diagrams: 06/14/18 08:50 06/14/18 08:50 Labs: Laboratory Results - last 24 hr 06/14/18 06/14/18 06/14/18 07:39 08:50 08:50 WBC 13.5 H RBC 5.73 H Hgb 14.0 D Hct 42.5 MCV 74.1 L D MCH 24.5 L MCHC 33.0 RDW 18.0 H Plt Count 408 H D MPV 7.6 Neut % (Auto) 85.5 H Lymph % (Auto) 11.5 L [place] % (Auto) 2.7 Eos % (Auto) 0.0 Baso % (Auto) 0.3 Neut # (Auto) 11.6 H Lymph # (Auto) 1.6 [place] # (Auto) 0.4 Eos # (Auto) 0.0 Baso # (Auto) 0.0 ESR Sodium 143 Potassium 4.0 Chloride 102 Carbon Dioxide 23 Anion Gap 22 H BUN 13 Creatinine 0.8 Est GFR ( Amer) > 60 Est GFR (Non-Af Amer) > 60 Random Glucose 165 H Calcium 10.5 H Total Bilirubin 0.7 AST 26 ALT 34 Alkaline Phosphatase 120 C-Reactive Protein C-React Prot High Sens Total Protein 9.1 H Albumin 5.0 Globulin 4.1 H Albumin/Globulin Ratio 1.2 Triglycerides Cholesterol LDL Cholesterol Direct HDL Cholesterol Urine Color Cece Urine Clarity Turbid Urine pH 6.0 Ur Specific [place] 1.033 H Urine Protein 100 Urine Glucose (UA) Neg Urine Ketones 20 Urine Blood Small Urine Nitrate Negative Urine Bilirubin Negative Urine Urobilinogen 0.2-1.0 Ur Leukocyte Esterase Small Urine RBC (Auto) 6 H Urine Microscopic WBC 9 H Ur Squamous Epith Cells 2 Amorphous Sediment Occ H Urine Bacteria Occ H 06/14/18 06/14/18 06/14/18 10:00 10:00 11:49 WBC RBC Hgb Hct MCV MCH MCHC RDW Plt Count MPV Neut % (Auto) Lymph % (Auto) [place] % (Auto) Eos % (Auto) Baso % (Auto) Neut # (Auto) Lymph # (Auto) [place] # (Auto) Eos # (Auto) Baso # (Auto) ESR 32 H Sodium Potassium Chloride Carbon Dioxide Anion Gap BUN Creatinine Est GFR ( Amer) Est GFR (Non-Af Amer) Random Glucose Calcium Total Bilirubin AST ALT Alkaline Phosphatase C-Reactive Protein Cancelled C-React Prot High Sens 2.53 Total Protein Albumin Globulin Albumin/Globulin Ratio Triglycerides 168 H Cholesterol 295 H LDL Cholesterol Direct 146 H HDL Cholesterol 79 H Urine Color Urine Clarity Urine pH Ur Specific [place] Urine Protein Urine Glucose (UA) Urine Ketones Urine Blood Urine Nitrate Urine Bilirubin Urine Urobilinogen Ur Leukocyte Esterase Urine RBC (Auto) Urine Microscopic WBC Ur Squamous Epith Cells Amorphous Sediment Urine Bacteria Assessment & Plan (1) Cervical radiculopathy at C5 Status: Acute (2) Neck pain Status: Acute (3) Strain of cervical portion of trapezius muscle Status: Acute (4) Chronic pain Status: Acute (5) Depression Status: Acute (6) Left arm weakness Status: Acute Comment: doubt stroke, probably from cervical myelpathy - Assessment and Plan (Free Text) Plan: start pain meds Ibuprofen cont all other pain meds Consult with Dr ansari Consult with Dr arias Psych eval Phys therapy Neuro eval re left upper arm weakness.
--- NOTE | 2018-06-14 18:18 | CP.PCM.CON ---
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 and pt is admitted for severe pain in left side of posterior neck and left shoulder and psych consult called for eval of depression.Pt reports h/o depression before her problems of pain issues .pt has been seeing a psychiatrist and prescribed prozac 40 mg daily and wellbutrin SR 150 mg daily and doing well Past Patient History - Infectious Disease Hx of Infectious Diseases: None - Tetanus Immunizations Tetanus Immunization: Unknown - Past Medical History & Family History Past Medical History?: Yes - Past Social History Smoking Status: Never Smoked - CARDIAC Hx Cardiac Disorders: No - PULMONARY Hx Respiratory Disorders: No - NEUROLOGICAL Hx Neurological Disorder: No Other/Comment: DX OF BRAIN TUMOR AUG 2016 - HEENT Hx HEENT Problems: Yes Hx Blind: Yes (legally) - RENAL Hx Chronic Kidney Disease: No - ENDOCRINE/METABOLIC Hx Endocrine Disorders: No - HEMATOLOGICAL/ONCOLOGICAL Hx Blood Disorders: No - INTEGUMENTARY Hx Dermatological Problems: No - MUSCULOSKELETAL/RHEUMATOLOGICAL Hx Falls: No - GASTROINTESTINAL Hx Gastrointestinal Disorders: No - GENITOURINARY/GYNECOLOGICAL Hx Genitourinary Disorders: No Other/Comment: ovarian cyst - PSYCHIATRIC Hx Anxiety: Yes Hx Depression: Yes Hx Substance Use: No - SURGICAL HISTORY Other/Comment: GASTRIC LAP BAND PLACEMENT AND REMOVAL 2014 .REMOVAL FIBROID AUG 2016 - ANESTHESIA Hx Anesthesia: Yes Hx Anesthesia Reactions: No Hx Malignant Hyperthermia: No Meds Allergies/Adverse Reactions: Allergies Allergy/AdvReac Type Severity Reaction Status Date / Time Penicillins Allergy ANAPHYLAXIS Verified 06/14/18 07:23 - Medications Medications: Current Medications Acetaminophen (Tylenol 325mg Tab) 650 mg PO Q4 PRN PRN Reason: Pain, Mild (1-3) Cyclobenzaprine HCl (Flexeril) 5 mg PO BID [facility] Last Admin: 06/14/18 16:42 Dose: 5 mg Enoxaparin Sodium (Lovenox) 40 mg SC DAILY [facility] PRN Reason: Protocol Fluoxetine HCl (Prozac) 40 mg PO DAILY [facility] Home Med (Bupropion Xl [Wellbutrin Xl]) 150 mg PO DAILY [facility] Lidocaine (Lidoderm) 1 ea TD DAILY [facility] Last Admin: 06/14/18 12:48 Dose: 1 ea Oxycodone/Acetaminophen (Percocet 5/325 Mg Tab) 2 tab PO Q4 PRN PRN Reason: Pain, severe (8-10) Stop: 06/17/18 12:07 Last Admin: 06/14/18 16:41 Dose: 2 tab Oxycodone/Acetaminophen (Percocet 5/325 Mg Tab) 1 tab PO Q4 PRN PRN Reason: Pain, moderate (4-7) Stop: 06/17/18 12:10 Zolpidem Tartrate (Ambien) 5 mg PO HS MAX Physical Exam - Psychiatric Exam Psychiatric exam: Anxious, Depressed Additional comments: pt is alert ,oriented x3 with intact cognition.pt denies suicidal ideation plan and intent.pt has fair insight.no psychosis. Results - Vital Signs Recent Vital Signs: Last Vital Signs Temp 98.1 F 06/14/18 16:09 Pulse 82 06/14/18 16:09 Resp 16 06/14/18 16:09 BP 120/80 06/14/18 16:09 Pulse Ox 98 06/14/18 16:09 - Labs Result Diagrams: 06/14/18 08:50 06/14/18 08:50 Labs: Laboratory Results - last 24 hr 06/14/18 06/14/18 06/14/18 07:39 08:50 08:50 WBC 13.5 H RBC 5.73 H Hgb 14.0 D Hct 42.5 MCV 74.1 L D MCH 24.5 L MCHC 33.0 RDW 18.0 H Plt Count 408 H D MPV 7.6 Neut % (Auto) 85.5 H Lymph % (Auto) 11.5 L [place] % (Auto) 2.7 Eos % (Auto) 0.0 Baso % (Auto) 0.3 Neut # (Auto) 11.6 H Lymph # (Auto) 1.6 [place] # (Auto) 0.4 Eos # (Auto) 0.0 Baso # (Auto) 0.0 ESR Sodium 143 Potassium 4.0 Chloride 102 Carbon Dioxide 23 Anion Gap 22 H BUN 13 Creatinine 0.8 Est GFR ( Amer) > 60 Est GFR (Non-Af Amer) > 60 Random Glucose 165 H Calcium 10.5 H Total Bilirubin 0.7 AST 26 ALT 34 Alkaline Phosphatase 120 C-Reactive Protein C-React Prot High Sens Total Protein 9.1 H Albumin 5.0 Globulin 4.1 H Albumin/Globulin Ratio 1.2 Triglycerides Cholesterol LDL Cholesterol Direct HDL Cholesterol Urine Color Cece Urine Clarity Turbid Urine pH 6.0 Ur Specific [place] 1.033 H Urine Protein 100 Urine Glucose (UA) Neg Urine Ketones 20 Urine Blood Small Urine Nitrate Negative Urine Bilirubin Negative Urine Urobilinogen 0.2-1.0 Ur Leukocyte Esterase Small Urine RBC (Auto) 6 H Urine Microscopic WBC 9 H Ur Squamous Epith Cells 2 Amorphous Sediment Occ H Urine Bacteria Occ H 06/14/18 06/14/18 06/14/18 10:00 10:00 11:49 WBC RBC Hgb Hct MCV MCH MCHC RDW Plt Count MPV Neut % (Auto) Lymph % (Auto) [place] % (Auto) Eos % (Auto) Baso % (Auto) Neut # (Auto) Lymph # (Auto) [place] # (Auto) Eos # (Auto) Baso # (Auto) ESR 32 H Sodium Potassium Chloride Carbon Dioxide Anion Gap BUN Creatinine Est GFR ( Amer) Est GFR (Non-Af Amer) Random Glucose Calcium Total Bilirubin AST ALT Alkaline Phosphatase C-Reactive Protein Cancelled C-React Prot High Sens 2.53 Total Protein Albumin Globulin Albumin/Globulin Ratio Triglycerides 168 H Cholesterol 295 H LDL Cholesterol Direct 146 H HDL Cholesterol 79 H Urine Color Urine Clarity Urine pH Ur Specific [place] Urine Protein Urine Glucose (UA) Urine Ketones Urine Blood Urine Nitrate Urine Bilirubin Urine Urobilinogen Ur Leukocyte Esterase Urine RBC (Auto) Urine Microscopic WBC Ur Squamous Epith Cells Amorphous Sediment Urine Bacteria Assessment & Plan - Assessment and Plan (Free Text) Assessment: major depression chronic pain Plan: Pt has agreed to continue prozac and wellbutrin SR and currently stable on the meds and can be d/c home when medically stable and will follow up with dr rico ,her private psychiatrist.
[2018-06-15] MEDS: Oxycodone/Acetaminophen 5/325 mg Tab PO PRN ×4 (00:57→13:21)
[2018-06-15] MEDS: Lidocaine 5% Patch TD SCH (08:56)
[2018-06-15] MEDS: Enoxaparin 40 mg Syringe SC SCH (08:58)
[2018-06-15] MEDS ORDERED: Patient's Own Med (Bupropion Xl [Wellbutrin Xl] 150 MG) PO SCH (09:00)
--- NOTE | 2018-06-15 10:08 | CARD ---
APPROVED REPORT Date of service: 06/14/2018 EKG Measurement Heart [id number] <Conclusion> Normal sinus rhythm Prolonged QT Abnormal ECG
[2018-06-15] MEDS ORDERED: Ciprofloxacin 400mg/200ml D5W 400 MG/200 ML BAG IVPB SCH (10:45)
--- NOTE | 2018-06-15 11:14 | CP.PCM.PN ---
Subjective - Date & Time of Evaluation Date of Evaluation: 06/15/18 Time of Evaluation: 11:13 - Subjective Subjective: patient still with weakness of the left upper arm Objective - Vital Signs/Intake and Output Vital Signs (last 24 hours): Temp Pulse Resp BP Pulse Ox 98.1 F 90 20 128/91 H 99 06/15/18 09:00 06/15/18 09:00 06/15/18 09:00 06/15/18 09:00 06/15/18 09:00 - Medications Medications: Current Medications Acetaminophen (Tylenol 325mg Tab) 650 mg PO Q4 PRN PRN Reason: Pain, Mild (1-3) Bupropion HCl (Wellbutrin Sr 150 Mg) 150 mg PO DAILY [facility] Cyclobenzaprine HCl (Flexeril) 5 mg PO BID [facility] Last Admin: 06/15/18 08:55 Dose: 5 mg Enoxaparin Sodium (Lovenox) 40 mg SC DAILY [facility] PRN Reason: Protocol Last Admin: 06/15/18 08:58 Dose: Not Given Fluoxetine HCl (Prozac) 40 mg PO DAILY [facility] Last Admin: 06/15/18 08:57 Dose: 40 mg Ciprofloxacin (Cipro 400mg/200ml Dsw) 400 mg in 200 mls @ 200 mls/hr IVPB Q12 [facility] PRN Reason: Protocol Lidocaine (Lidoderm) 1 ea TD DAILY [facility] Last Admin: 06/15/18 08:56 Dose: 1 ea Oxycodone/Acetaminophen (Percocet 5/325 Mg Tab) 2 tab PO Q4 PRN PRN Reason: Pain, severe (8-10) Stop: 06/17/18 12:07 Last Admin: 06/15/18 08:54 Dose: 2 tab Oxycodone/Acetaminophen (Percocet 5/325 Mg Tab) 1 tab PO Q4 PRN PRN Reason: Pain, moderate (4-7) Stop: 06/17/18 12:10 Zolpidem Tartrate (Ambien) 5 mg PO HS [facility] Last Admin: 06/14/18 21:11 Dose: 5 mg - Labs Labs: 06/14/18 08:50 06/14/18 08:50 Assessment and Plan (1) Cervical radiculopathy at C5 Status: Acute (2) Neck pain Status: Acute (3) Strain of cervical portion of trapezius muscle Status: Acute (4) Chronic pain Status: Acute (5) Depression Status: Acute (6) Left arm weakness Status: Acute
[2018-06-15] MEDS: buPROPion SR 150 MG TABLET PO SCH (11:52)
--- NOTE | 2018-06-15 15:42 | CP.PCM.CON ---
History of Present Illness - History of Present Illness History of Present Illness: Neurology Consultation Note: Ms. Pan is a 33-year-old woman with previous cervical spine surgery (Dr. Paez ), who states that she has been having increased neck pain. She takes 60 mg of Oxycontin TID and 30 mg of Oxycodone TID. She denied weakness, but states she has left arm tingling at times. She feels that she is withdrawing from her opiates and had increased perspirations with some shaking of her upper extremities. Vital signs were normal. Review of Systems - Review of Systems All systems: reviewed and no additional remarkable complaints except Past Patient History - Infectious Disease Hx of Infectious Diseases: None - Tetanus Immunizations Tetanus Immunization: Unknown - Past Medical History & Family History Past Medical History?: Yes - Past Social History Smoking Status: Never Smoked - CARDIAC Hx Cardiac Disorders: No - PULMONARY Hx Respiratory Disorders: No - NEUROLOGICAL Hx Neurological Disorder: No Other/Comment: DX OF BRAIN TUMOR AUG 2016 - HEENT Hx HEENT Problems: Yes Hx Blind: Yes (legally) - RENAL Hx Chronic Kidney Disease: No - ENDOCRINE/METABOLIC Hx Endocrine Disorders: No - HEMATOLOGICAL/ONCOLOGICAL Hx Blood Disorders: No - INTEGUMENTARY Hx Dermatological Problems: No - MUSCULOSKELETAL/RHEUMATOLOGICAL Hx Falls: No - GASTROINTESTINAL Hx Gastrointestinal Disorders: No - GENITOURINARY/GYNECOLOGICAL Hx Genitourinary Disorders: No Other/Comment: ovarian cyst - PSYCHIATRIC Hx Anxiety: Yes Hx Depression: Yes Hx Substance Use: No - SURGICAL HISTORY Other/Comment: GASTRIC LAP BAND PLACEMENT AND REMOVAL 2014 .REMOVAL FIBROID AUG 2016 - ANESTHESIA Hx Anesthesia: Yes Hx Anesthesia Reactions: No Hx Malignant Hyperthermia: No Meds Allergies/Adverse Reactions: Allergies Allergy/AdvReac Type Severity Reaction Status Date / Time Penicillins Allergy ANAPHYLAXIS Verified 06/14/18 07:23 - Medications Medications: Current Medications Acetaminophen (Tylenol 325mg Tab) 650 mg PO Q4 PRN PRN Reason: Pain, Mild (1-3) Bupropion HCl (Wellbutrin Sr 150 Mg) 150 mg PO DAILY [facility] Last Admin: 06/15/18 11:52 Dose: 150 mg Cyclobenzaprine HCl (Flexeril) 5 mg PO BID [facility] Last Admin: 06/15/18 08:55 Dose: 5 mg Enoxaparin Sodium (Lovenox) 40 mg SC DAILY [facility] PRN Reason: Protocol Last Admin: 06/15/18 08:58 Dose: Not Given Fluoxetine HCl (Prozac) 40 mg PO DAILY [facility] Last Admin: 06/15/18 08:57 Dose: 40 mg Vancomycin HCl 1 gm/ Sodium (Chloride) 250 mls @ 166.667 mls/hr IVPB Q12 MAX PRN Reason: Protocol Last Admin: 06/15/18 13:30 Dose: 166.667 mls/hr Aztreonam 1 gm/ Sodium (Chloride) 100 mls @ 100 mls/hr IVPB Q8 MAX PRN Reason: Protocol Lidocaine (Lidoderm) 1 ea TD DAILY [facility] Last Admin: 06/15/18 08:56 Dose: 1 ea Oxycodone HCl (Oxycontin Extended Release Tab) 60 mg PO ONCE ONE Stop: 06/15/18 17:01 Oxycodone HCl (Oxycontin Extended Release Tab) 20 mg PO ONCE ONE Stop: 06/15/18 17:01 Oxycodone/Acetaminophen (Percocet 5/325 Mg Tab) 2 tab PO Q4 PRN PRN Reason: Pain, severe (8-10) Stop: 06/17/18 12:07 Last Admin: 06/15/18 13:21 Dose: 2 tab Oxycodone/Acetaminophen (Percocet 5/325 Mg Tab) 1 tab PO Q4 PRN PRN Reason: Pain, moderate (4-7) Stop: 06/17/18 12:10 Zolpidem Tartrate (Ambien) 5 mg PO HS [facility] Last Admin: 06/14/18 21:11 Dose: 5 mg Physical Exam - Neurological Exam Neurological exam: Abnormal Gait, CN II-XII Intact, Oriented x3, Reflexes Normal Additional comments: Essentially, non-focal neurological examination. Results - Vital Signs Recent Vital Signs: Last Vital Signs Temp 98.1 F 06/15/18 13:36 Pulse 88 06/15/18 13:36 Resp 20 06/15/18 13:36 BP 119/84 06/15/18 13:36 Pulse Ox 98 06/15/18 13:36 - Labs Result Diagrams: 06/14/18 08:50 06/14/18 08:50 Labs: Laboratory Results - last 24 hr 06/14/18 06/15/18 06/15/18 11:49 04:20 04:20 Hemoglobin A1c 6.2 C-React Prot High Sens 2.53 TSH 3rd Generation 0.95 Assessment & Plan (1) Cervical radiculopathy at C5 Assessment and Plan: This is a chronic condition managed by neurosurgery. I recommend using gabapentin 300 mg TID and consult with pain management. Neurosurgery is also recommended. Thank you. Status: Acute Priority: Medium
[2018-06-15] MEDS: Aztreonam 1 GM in Sodium Chloride 0.9% 100 ML IVPB SCH ×2 (16:08→17:20)
[2018-06-15] MEDS ORDERED: oxyCODONE 20 mg ER Tab (oxyCONTIN) PO ONE ×2 (17:00)
[2018-06-15] MEDS ORDERED: Gadodiamide 287 MG/ML VIAL (15ML) IV ONE (17:26)
--- NOTE | 2018-06-15 20:50 | CP.PCM.CON ---
History of Present Illness - History of Present Illness History of Present Illness: Dr Wilkes Pain consultation on Janelle Pan, born 1985, who has been admitted for pain exacerbation. Had undergone cervical surgery with Dr Paez MRI not officially read but did not appear to have significant abnormality. She is on chronic narcotics and this has preceded her current cervical issues with things like a dog bumping into her knee and other issues that do not appear to have necessitated her current regimen. She is aware of this and was quite jessica and accepting this conclusion and would like to go down on meds but is concerned of withdrawl. I told her that this is the place to be if she was going to get off of the meds now. We will put her on oxycodone 10mg. I will put her on oxycontin 10mg for 2 days then d/c Review of Systems - Constitutional Constitutional: absent: Anorexia, Chills - EENT Eyes: absent: Change in Vision Ears: absent: Ear Discharge, Ear Pain Nose/Mouth/Throat: absent: Nasal Congestion - Cardiovascular Cardiovascular: absent: Chest Pain - Respiratory Respiratory: absent: Dyspnea - Gastrointestinal Gastrointestinal: absent: Belching, Constipation Past Patient History - Infectious Disease Hx of Infectious Diseases: None - Tetanus Immunizations Tetanus Immunization: Unknown - Past Medical History & Family History Past Medical History?: Yes - Past Social History Smoking Status: Never Smoked - CARDIAC Hx Cardiac Disorders: No - PULMONARY Hx Respiratory Disorders: No - NEUROLOGICAL Hx Neurological Disorder: No Other/Comment: DX OF BRAIN TUMOR AUG 2016 - HEENT Hx HEENT Problems: Yes Hx Blind: Yes (legally) - RENAL Hx Chronic Kidney Disease: No - ENDOCRINE/METABOLIC Hx Endocrine Disorders: No - HEMATOLOGICAL/ONCOLOGICAL Hx Blood Disorders: No - INTEGUMENTARY Hx Dermatological Problems: No - MUSCULOSKELETAL/RHEUMATOLOGICAL Hx Falls: No - GASTROINTESTINAL Hx Gastrointestinal Disorders: No - GENITOURINARY/GYNECOLOGICAL Hx Genitourinary Disorders: No Other/Comment: ovarian cyst - PSYCHIATRIC Hx Anxiety: Yes Hx Depression: Yes Hx Substance Use: No - SURGICAL HISTORY Other/Comment: GASTRIC LAP BAND PLACEMENT AND REMOVAL 2014 .REMOVAL FIBROID AUG 2016 - ANESTHESIA Hx Anesthesia: Yes Hx Anesthesia Reactions: No Hx Malignant Hyperthermia: No Meds Allergies/Adverse Reactions: Allergies Allergy/AdvReac Type Severity Reaction Status Date / Time Penicillins Allergy ANAPHYLAXIS Verified 06/14/18 07:23 - Medications Medications: Current Medications Acetaminophen (Tylenol 325mg Tab) 650 mg PO Q4 PRN PRN Reason: Pain, Mild (1-3) Bupropion HCl (Wellbutrin Sr 150 Mg) 150 mg PO DAILY [facility] Last Admin: 06/15/18 11:52 Dose: 150 mg Cyclobenzaprine HCl (Flexeril) 5 mg PO BID [facility] Last Admin: 06/15/18 17:33 Dose: 5 mg Enoxaparin Sodium (Lovenox) 40 mg SC DAILY [facility] PRN Reason: Protocol Last Admin: 06/15/18 08:58 Dose: Not Given Fluoxetine HCl (Prozac) 40 mg PO DAILY [facility] Last Admin: 06/15/18 08:57 Dose: 40 mg Gabapentin (Neurontin) 300 mg PO TID [facility] Last Admin: 06/15/18 19:31 Dose: 300 mg Vancomycin HCl 1 gm/ Sodium (Chloride) 250 mls @ 166.667 mls/hr IVPB Q12 [facility] PRN Reason: Protocol Last Admin: 06/15/18 13:30 Dose: 166.667 mls/hr Aztreonam 1 gm/ Sodium (Chloride) 100 mls @ 100 mls/hr IVPB Q8 [facility] PRN Reason: Protocol Last Admin: 06/15/18 17:20 Dose: Not Given Lidocaine (Lidoderm) 1 ea TD DAILY [facility] Last Admin: 06/15/18 08:56 Dose: 1 ea Oxycodone HCl (Oxycodone Immediate Release Tab) 10 mg PO Q6 PRN PRN Reason: pain 5-10/10 Zolpidem Tartrate (Ambien) 5 mg PO HS [facility] Last Admin: 06/14/18 21:11 Dose: 5 mg Physical Exam - Constitutional Appears: Non-toxic, No Acute Distress - Head Exam Head Exam: ATRAUMATIC, NORMAL INSPECTION, NORMOCEPHALIC - Eye Exam Eye Exam: EOMI - ENT Exam ENT Exam: Mucous Membranes Moist - Respiratory Exam Respiratory Exam: NORMAL BREATHING PATTERN - Cardiovascular Exam Cardiovascular Exam: REGULAR RHYTHM - Neurological Exam Neurological exam: Alert, CN II-XII Intact, Oriented x3 Results - Vital Signs Recent Vital Signs: Last Vital Signs Temp 98.3 F 06/15/18 18:55 Pulse 114 H 06/15/18 18:55 Resp 20 06/15/18 18:55 BP 110/72 06/15/18 18:55 Pulse Ox 96 06/15/18 18:55 - Labs Result Diagrams: 06/14/18 08:50 06/14/18 08:50 Labs: Laboratory Results - last 24 hr 06/15/18 06/15/18 04:20 04:20 Hemoglobin A1c 6.2 TSH 3rd Generation 0.95 Assessment & Plan - Assessment and Plan (Free Text) Assessment: Opioid dependence and chronic pain I will get her down on meds as per our conversation. thank you
[2018-06-15] MEDS: oxyCODONE 10 mg ER Tab (oxyCONTIN) PO SCH (21:09)
[2018-06-15] MEDS: oxyCODONE 10 mg Immediate Release Tab PO PRN (21:10)
[2018-06-16] MEDS: Aztreonam 1 GM in Sodium Chloride 0.9% 100 ML IVPB SCH ×2 (01:55→08:34)
[2018-06-16] MEDS: oxyCODONE 10 mg Immediate Release Tab PO PRN (04:54)
[2018-06-16 06:10] LABS: HEMOGLOBIN 12.3 g/dL (12.0-16.0); MEAN CORPUSCULAR HEMOGLOBIN 24.3 pg (27.0-31.0); MEAN CORPUSCULAR HGB CONC 32.3 g/dL (33.0-37.0); RBC 5.08 Mil/uL (3.80-5.20); RED CELL DISTRIBUTION WIDTH 17.3 % (11.5-14.5); WHITE BLOOD COUNT 10.5 K/uL (4.8-10.8)
[2018-06-16 06:26] LABS: BLOOD UREA NITROGEN 17 mg/dl (7-17); CALCIUM 9.2 mg/dL (8.4-10.2); GFR AFRICAN-AMERICAN > 60; GFR NON-AFRICAN AMERICAN 57
[2018-06-16] MEDS: Enoxaparin 40 mg Syringe SC SCH (08:23)
[2018-06-16] MEDS: buPROPion SR 150 MG TABLET PO SCH (08:23)
[2018-06-16] MEDS: Lidocaine 5% Patch TD SCH (08:24)
[2018-06-16 08:27] VITALS: RESP 20
[2018-06-16] MEDS: oxyCODONE 10 mg ER Tab (oxyCONTIN) PO SCH (08:28)
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
--- NOTE | 2018-06-16 11:50 | CP.PCM.DIS ---
Provider - Provider Date of Admission: 06/14/18 10:12 Attending physician: Jack Bynum MD Time Spent in preparation of Discharge (in minutes): 20 Diagnosis - Discharge Diagnosis (1) Cervical radiculopathy at C5 Status: Chronic Priority: Medium (2) Chronic pain Status: Chronic (3) Left arm weakness Status: Resolved (4) Strain of cervical portion of trapezius muscle Status: Acute Hospital Course - Lab Results Lab Results: Micro Results 06/14/18 10:37 Urine,Clean Catch Urine Culture - Preliminary Enterococcus Faecalis Gram Negative Nirav 06/14/18 10:25 Blood-Venous Blood Culture - Preliminary NO GROWTH AFTER 24 HOURS 06/14/18 10:05 Blood-Venous Blood Culture - Preliminary NO GROWTH AFTER 24 HOURS Most Recent Lab Values WBC 10.5 K/uL (4.8-10.8) 06/16/18 04:20 RBC 5.08 Mil/uL (3.80-5.20) 06/16/18 04:20 Hgb 12.3 g/dL (12.0-16.0) 06/16/18 04:20 Hct 38.1 % (34.0-47.0) 06/16/18 04:20 MCV 75.0 fl (81.0-99.0) L 06/16/18 04:20 MCH 24.3 pg (27.0-31.0) L 06/16/18 04:20 MCHC 32.3 g/dL (33.0-37.0) L 06/16/18 04:20 RDW 17.3 % (11.5-14.5) H 06/16/18 04:20 Plt Count 285 K/uL (130-400) D 06/16/18 04:20 MPV 7.6 fl (7.2-11.7) 06/14/18 08:50 Neut % (Auto) 85.5 % (50.0-75.0) H 06/14/18 08:50 Lymph % (Auto) 11.5 % (20.0-40.0) L 06/14/18 08:50 [place] % (Auto) 2.7 % (0.0-10.0) 06/14/18 08:50 Eos % (Auto) 0.0 % (0.0-4.0) 06/14/18 08:50 Baso % (Auto) 0.3 % (0.0-2.0) 06/14/18 08:50 Neut # (Auto) 11.6 K/uL (1.8-7.0) H 06/14/18 08:50 Lymph # (Auto) 1.6 K/uL (1.0-4.3) 06/14/18 08:50 [place] # (Auto) 0.4 K/uL (0.0-0.8) 06/14/18 08:50 Eos # (Auto) 0.0 K/uL (0.0-0.7) 06/14/18 08:50 Baso # (Auto) 0.0 K/uL (0.0-0.2) 06/14/18 08:50 ESR 32 mm/hr (0-20) H 06/14/18 10:00 Sodium 139 mmol/l (132-148) 06/16/18 04:20 Potassium 3.5 MMOL/L (3.6-5.0) L 06/16/18 04:20 Chloride 99 mmol/L (98-107) 06/16/18 04:20 Carbon Dioxide 27 mmol/L (22-30) 06/16/18 04:20 Anion Gap 17 (10-20) 06/16/18 04:20 BUN 17 mg/dl (7-17) 06/16/18 04:20 Creatinine 1.1 mg/dl (0.7-1.2) 06/16/18 04:20 Est GFR ( Amer) > 60 06/16/18 04:20 Est GFR (Non-Af Amer) 57 06/16/18 04:20 Random Glucose 96 mg/dL (65-105) 06/16/18 04:20 Hemoglobin A1c 6.2 % (4.2-6.5) 06/15/18 04:20 Calcium 9.2 mg/dL (8.4-10.2) 06/16/18 04:20 Total Bilirubin 0.7 mg/dl (0.2-1.3) 06/14/18 08:50 AST 26 U/L (14-36) 06/14/18 08:50 ALT 34 U/L (9-52) 06/14/18 08:50 Alkaline Phosphatase 120 U/L (38-126) 06/14/18 08:50 C-Reactive Protein Cancelled 06/14/18 10:00 C-React Prot High Sens 2.53 mg/L (1.00-3.00) 06/14/18 11:49 Total Protein 9.1 G/DL (6.3-8.2) H 06/14/18 08:50 Albumin 5.0 g/dL (3.5-5.0) 06/14/18 08:50 Globulin 4.1 gm/dL (2.2-3.9) H 06/14/18 08:50 Albumin/Globulin Ratio 1.2 (1.0-2.1) 06/14/18 08:50 Triglycerides 168 mg/DL (0-149) H 06/14/18 10:00 Cholesterol 295 mg/dL (0-199) H 06/14/18 10:00 LDL Cholesterol Direct 146 mg/dL (0-129) H 06/14/18 10:00 HDL Cholesterol 79 MG/DL (30-70) H 06/14/18 10:00 TSH 3rd Generation 0.95 mIU/ML (0.46-4.68) 06/15/18 04:20 Urine Color Cece (YELLOW) 06/14/18 07:39 Urine Clarity Turbid (Clear) 06/14/18 07:39 Urine pH 6.0 (5.0-8.0) 06/14/18 07:39 Ur Specific [place] 1.033 (1.003-1.030) H 06/14/18 07:39 Urine Protein 100 mg/dL (NEGATIVE) 06/14/18 07:39 Urine Glucose (UA) Neg mg/dL (Normal) 06/14/18 07:39 Urine Ketones 20 mg/dL (NEGATIVE) 06/14/18 07:39 Urine Blood Small (NEGATIVE) 06/14/18 07:39 Urine Nitrate Negative (NEGATIVE) 06/14/18 07:39 Urine Bilirubin Negative (NEGATIVE) 06/14/18 07:39 Urine Urobilinogen 0.2-1.0 mg/dL (0.2-1.0) 06/14/18 07:39 Ur Leukocyte Esterase Small Kevin/uL (Negative) 06/14/18 07:39 Urine RBC (Auto) 6 /hpf (0-3) H 06/14/18 07:39 Urine Microscopic WBC 9 /hpf (0-5) H 06/14/18 07:39 Ur Squamous Epith Cells 2 /hpf (0-5) 06/14/18 07:39 Amorphous Sediment Occ /ul (<OCC) H 06/14/18 07:39 Urine Bacteria Occ (<OCC) H 06/14/18 07:39 - Hospital Course Hospital Course: 33 YO female with PMHx of neck surgery was admitted for acute on chronic radiculopathy, LUE weakness and worsening of chronic pain. During her stay pain was optimized, LUE weakness resolved. Pt was seen by ID, pain management and neurosurg. Pt cleared to be d/c home with follow up with PMD, and recommend seeing pain management as out patient. D/c meds as ordered. Discharge Exam - Head Exam Head Exam: NORMOCEPHALIC - Eye Exam Eye Exam: EOMI - ENT Exam ENT Exam: Mucous Membranes Moist - Neck Exam Neck exam: Full Rom - Respiratory Exam Respiratory Exam: Clear to PA & Lateral. absent: Wheezes - Cardiovascular Exam Cardiovascular Exam: REGULAR RHYTHM, +S1, +S2 - GI/Abdominal Exam GI & Abdominal Exam: Normal Bowel Sounds, Soft - Extremities Exam Extremities exam: normal inspection Additional comments: LUE weakness resolved, strength 5/5 b/l - Neurological Exam Neurological exam: Alert, Oriented x3 Discharge Plan - Discharge Medications Prescriptions: Atorvastatin [Lipitor] 10 mg PO DIN #30 tab Cyclobenzaprine [Flexeril] 5 mg PO BID #60 tab Gabapentin [Neurontin] 300 mg PO TID #60 cap Nitrofurantoin Macrocrystals [Macrobid] 100 mg PO Q12 #10 cap - Follow Up Plan Condition: GOOD Disposition: HOME/ ROUTINE Instructions: Low Cholesterol, Saturated Fat, and Trans Fat Diet Additional Instructions: patient cleared for discharge to Home today by , pt. instructed to f/u with pmd and paint dipper in 1 week E rx sent to pharmacy Referrals: Paulo Paez MD [Staff Provider] - César Mahoney MD [Family Provider] -
[2018-06-16 12:39] VITALS: BP 117/80; PULSE 90; TEMP 97.5; O2SAT 97
--- NOTE | 2018-06-16 15:55 | MRI ---
Date of service: 06/15/2018 PROCEDURE: MR CERVICAL SPINE WITH AND WITHOUT CONTRAST HISTORY: R/o infection COMPARISON: None available. TECHNIQUE: Multiecho multiplanar sequences were performed through the cervical spine with and without the use of intravenous contrast. 20 cc of Omniscan FINDINGS: Normal lordotic curvature. Craniocervical junction unremarkable. Vertebral body heights preserved. No marrow signal abnormality. Normal cervical cord. No paraspinal abnormality. No abnormal enhancement Pedicle screws and rods are seen from C3 through C7. Laminectomy is been performed at these levels. There is no evidence of spinal stenosis. There is a mild disc bulge at C6-7 OTHER FINDINGS: None. IMPRESSION: Fusion and laminectomy C3 through C7. No evidence of stenosis or malalignment. Mild disc bulge C6-7 No enhancement
== END 2018-06-16 12:43 | disposition home or self-care (01) | DRG 74 ==
LOC: H.ER 07:03 → H.ERHOLD 10:12 → H.TEL 11:40
PROVIDERS: ADMIT Family Medicine; ATTEND Family Medicine
DX: M54.12 Radiculopathy, cervical region (principal); N39.0 Urinary tract infection, site not specified; F11.20 Opioid dependence, uncomplicated; F32.9 Major depressive disorder, single episode, unspecified; G89.29 Other chronic pain; S16.1XXA Strain of muscle, fascia and tendon at neck level, initial encounter; R53.1 Weakness; Z88.0 Allergy status to penicillin; F41.9 Anxiety disorder, unspecified; H54.8 Legal blindness, as defined in USA; X58.XXXA Exposure to other specified factors, initial encounter; Y92.9 Unspecified place or not applicable